=== PATIENT | female | born 1985 | race Hispanic/Latino ===

== ENCOUNTER → 2016-05-08 | Outpatient (CLI) | payer OTHER ==
[~2016-05-08] MED LIST: LIDO5TD TD; VIST50CA PO; ZOLO25TA PO; ZOLOFT PO
--- NOTE | 2016-05-08 15:57 | REP ---
MAXILLOFACIAL CT WITHOUT CONTRAST: HISTORY: Chronic pansinusitis. Minimal mucosal thickening is present in the ethmoid, maxillary, frontal and sphenoid sinuses. Mucosal thickening involves the ostiomeatal units. The middle and inferior nasal turbinates are partially paradoxical. There is mild deviation of the nasal septum to the right. A spur is present arising from the right side of the nasal septum. The spur abuts the right inferior nasal turbinate. The cribriform plate, medial moss of the orbits and optic canals are intact. The carotid canals form a segment of the posterolateral moss of the sphenoid sinus. The sphenoid sinus septa insert into the internal carotid canal moss. IMPRESSION: Sinus mucosal thickening as described above. Signed by Jose Maria Jimenez MD 05/08/2016 04:03 P
== END ==
LOC: M RAD 15:04
PROVIDERS: ATTEND Specialist
DX: J32.4 Chronic pansinusitis (principal)